=== PATIENT | male | born 1970 | race Caucasian/White ===

== ENCOUNTER 2019-01-02 19:49 | Emergency (ER) | payer BC ==
[~2019-01-02] VITALS: Ht 177.8 cm; Wt 72.6 kg
[2019-01-02 20:20] VITALS: BP 126/70
--- NOTE | 2019-01-02 20:39 | PHYS DOC ---
Past Medical History Past Medical History: No Pertinent History Past Surgical History: No Surgical History, Other Additional Past Surgical Histo: hernia Alcohol Use: None Drug Use: None Adult General Chief Complaint Chief Complaint: INSECT BITE [facility] HPI Patient is a 49 year old male who presents to the emergency department with complaints of a discoloration to the anterior right lower extremity today he noticed today. Patient denies any itching or pain at site. He reports concern that maybe he was bit by a brown recluse spider. Patient denies any swelling, warmth, or drainage from the site. He currently denies any pain. Patient states he has been very active lately with various projects. He denies any known injury, or pain with ambulation. All other ROS is neg unless otherwise noted in HPI. Review of Systems Review of Systems See Above Allergies Allergies Allergies Coded Allergies Type Severity Reaction Last Updated Verified No Known Drug Allergies 01/02/19 No Physical Exam Physical Exam See Above Constitutional: Well developed, well nourished, no acute distress, non-toxic appearance. [] HENT: Normocephalic, atraumatic, bilateral external ears normal, nose normal. [] Eyes: PERRLA, EOMI, conjunctiva normal, no discharge. [] Neck: Normal range of motion, no stridor. [] Cardiovascular:Heart rate regular rhythm Abdomen: Respirations even and unlabored, no retractions, no respiratory distress Skin: Warm, dry, no erythema, no rash; bruising noted to anterior right lower extremity no warmth or TTP [] Extremities: No tenderness, no cyanosis, no clubbing, ROM intact, no edema. [] Neurologic: Alert and oriented X 3, no focal deficits noted. [] Psychologic: Affect normal, judgement normal, mood normal. [] Current Patient Data Vital Signs Vital Signs Date Time Temp Pulse Resp B/P (MAP) Pulse Ox O2 Delivery O2 Flow Rate FiO2 01/02/19 20:20 98.5 87 17 126/70 (88) 96 Room Air 98.5 EKG EKG [] Radiology/Procedures Radiology/Procedures [] Course & Med Decision Making Course & Med Decision Making Pertinent Labs and Imaging studies reviewed. (See chart for details) [] Dragon Disclaimer Dragon Disclaimer This electronic medical record was generated, in whole or in part, using a voice recognition dictation system. Departure Departure Impression: Primary Impression: Contusion of right lower leg, initial encounter Disposition: 01 HOME, SELF-CARE Condition: STABLE Patient Instructions: Contusion, [id number] Additional Instructions: Tylenol or ibuprofen as needed for pain. Follow-up with your primary care doctor if symptoms persist, return to the ER if symptoms worsen or you develop a fever. SHONDA SAHU APRN Jan 02, 2019 20:39
== END 2019-01-02 20:46 | disposition home or self-care (01) ==
LOC: ER 19:49
DX: S80.11XA Contusion of right lower leg, initial encounter (principal); X58.XXXA Exposure to other specified factors, initial encounter; Y93.89 Activity, other specified; Y92.89 Other specified places as the place of occurrence of the external cause; Y99.8 Other external cause status
CPT/HCPCS: 99281